=== PATIENT | male | born 2000 | race Caucasian/White ===

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

== ENCOUNTER 2020-08-24 17:23 | Emergency (ER) | payer OTHER ==
[~2020-08-24] VITALS: Ht 185.4 cm; Wt 97.5 kg
[~2020-08-24 17:23] MED LIST changes: +IBUP400 PO
[2020-08-24 17:52] LABS: BASOPHILS ABSOLUTE AUTO 0.06 K/mm3 (0.00-0.23); BASOPHILS PERCENT AUTO 1 % (0-2); EOSINOPHILS ABSOLUTE AUTO 0.18 K/mm3 (0.00-0.68); EOSINOPHILS PERCENT AUTO 3 % (0-6); Hematocrit 47.5 % (37.0-53.0); Hemoglobin 16.2 g/dL (13.5-17.5); IMMATURE GRAN ABSOLUTE AUTO 0.02 K/mm3 (0.00-0.10); IMMATURE GRAN PERCENT AUTO 0 % (0-1); LYMPHOCYTES ABSOLUTE AUTO 1.83 K/mm3 (0.84-5.20); LYMPHOCYTES PERCENT AUTO 32 % (21-46); MONOCYTES ABSOLUTE AUTO 0.54 K/mm3 (0.16-1.47); MONOCYTES PERCENT AUTO 10 % (4-13); Mean Corpuscular HGB 31.2 pg (26.0-34.0); Mean Corpuscular HGB Conc 34.1 g/dL (31.5-36.5); Mean Corpuscular Volume 92 fL (80-100); Mean Platelet Volume 10.8 fL (9.1-12.4); NEUTROPHILS ABSOLUTE AUTO 3.04 K/mm3 (1.96-9.15); NEUTROPHILS PERCENT AUTO 54 % (41-73); Platelet Count 216 K/mm3 (150-400); RDW Coefficient Variation 12.6 % (11.7-14.2); Red Blood Cell Count 5.19 M/mm3 (4.30-5.90); White Blood Cell Count 5.67 K/mm3 (4.00-11.30)
[2020-08-24 18:10] LABS: Alanine Aminotransfer (ALT/SGP 64 U/L (12-78); Albumin, Blood 3.9 g/dL (3.4-5.0); Albumin/Globulin Ratio 1.1 (0.8-1.8); Alk Phos 146 U/L (50-136); Anion Gap 6 mmol/L (6-16); Aspartate Aminotrans (AST/SGOT 42 U/L (12-37); Bilirubin, Total 0.3 mg/dL (0.1-1.0); Blood Urea Nitrogen 11 mg/dL (8-24); Bun/Creatinine Ratio 14.8 (12.0-20.0); CO2, Blood 26 mmol/L (21-32); Calcium, Blood 9.2 mg/dL (8.5-10.1); Chloride, Blood 109 mmol/L (98-108); Creatinine, Blood 0.74 mg/dL (0.60-1.20); Globulin, Blood 3.4 g/dL (2.2-4.0); Glomerular Filtration Rate >60 (60-); Glucose, Blood 102 mg/dL (70-99); Potassium, Blood 3.9 mmol/L (3.5-5.5); Sodium, Blood 141 mmol/L (136-145); Total Protein, Blood 7.3 g/dL (6.4-8.2)
[2020-08-24] MEDS ORDERED: Cipro500 MG PO (20:20)
== END 2020-08-24 20:40 | disposition home or self-care (01) ==
LOC: ER 17:23
PROVIDERS: Physician Assistant
DX: K57.92 Diverticulitis of intestine, part unspecified, without perforation or abscess without bleeding (principal)
CPT/HCPCS: 36415; 74177; 80053; 83690; 85025; 99284-25; Q9967

== ENCOUNTER 2020-12-16 11:18 | Emergency (ER) | payer OTHER ==
[~2020-12-16] VITALS: Ht 185.4 cm; Wt 102.5 kg
[~2020-12-16 11:18] MED LIST changes: +Cipro500 MG PO
[2020-12-16] MEDS ORDERED: Naprosyn500 MG PO (11:55)
== END 2020-12-16 12:01 | disposition home or self-care (01) ==
LOC: ER 11:18
DX: M25.532 Pain in left wrist (principal)
CPT/HCPCS: 73100; 99283-25

== ENCOUNTER 2021-01-30 06:08 | Day surgery (SDC) | payer OTHER ==
[~2021-01-30] VITALS: Ht 185.4 cm; Wt 101.5 kg
[~2021-01-30 06:08] MED LIST changes: +Naprosyn500 MG PO
--- NOTE | 2021-01-30 08:09 | NUR ---
01/30/21 0809 Ap Schmidt PT HAD A VERY SHORT PERIOD OF ASYSTOLE. DR. ALBRECHT GAVE SOME MEDICATIONS AND PT IMMEDIATELY RETURNED TO NSR BRADYCARDIA. WITHOUT FURTHER INTERVENTION PT RETURNED TO HIS BASELINE. 0.15ML OF EPI ADDED TO 30ML OF BUPIVICAINE 0.5% TO CREATE A SOLUTION OF BUPIVICAINE 0.5% WITH EPI 1:200,000.
--- NOTE | 2021-01-30 08:31 | NUR ---
01/30/21 0831 MEHUL RAMIREZ PT HAD REPORTED ASYSTOLE DURING SURGERY- 30 SECONDS APPROX.
--- NOTE | 2021-01-30 08:55 | NUR ---
01/30/21 0855 MEHUL RAMIREZ ATTACHED TO 3 LEAD. SINUS RHYTHM PER MONITOR. MOM IS AT BEDSIDE CONSIDERING CIRCUMSTANCES. PT ALERT AND AWAKE.
== END 2021-01-30 09:25 | disposition home or self-care (01) ==
LOC: ORSCSDS 06:08
PROVIDERS: Orthopaedic Surgery
PROC: 0PP Upper Bones, Removal (ICD-10-PCS; principal; 2021-01-30 07:30)
DX: T84.84XA Pain due to internal orthopedic prosthetic devices, implants and grafts, initial encounter (principal)
CPT/HCPCS: 93005; 93010; J0171; J0690; J1100; J1885; J2405; J2704; J3010; J7120